=== PATIENT | male | born 1985 | race Caucasian/White ===

== ENCOUNTER 2019-03-27 12:58 | Emergency (ER) | payer BC ==
[~2019-03-27] VITALS: Ht 177.8 cm; Wt 104.3 kg
[2019-03-27 13:10] VITALS: BP 161/87
[2019-03-27] MEDS ORDERED: ADDERAL20 MG ORAL (13:10)
--- NOTE | 2019-03-27 13:12 | NUR ---
ED Nurse Note: pt walked in to ED due to dog bite on right hand last night. dog own by pt. up to date for vaccination. swelling noted. no active bleeding. limited ROM due to pain. AAO x4. respirations even and non-labored noted. will wait for the further order.
--- NOTE | 2019-03-27 13:42 | Emergency Room Report ---
History of Present Illness General Chief Complaint: Animal Bite Present Illness HPI 33-year-old male presents to the emergency department complaining of 8 out of 10 severity localized pain to the right hand since last night. Patient status post dog bite. Patient reports that his [place] bit him while he was trying to make the dog outside. Patient reports some bleeding which has resolved now he reports some surrounding erythema to the wound. Patient reports pain primarily in the PIP joint of the right fifth digit. Patient states he is up-to-date with his tetanus vaccinations. He denies taking blood thinning medications. He denies history of immune compromise. Denies numbness , tingling or loss of sensation or gross motor movements of the extremities. Denies bruising. or wounds elsewhere on the body. The dog is UTD with its vaccinations. Pt. is right hand dominant. Pain is exacerbated when attempting to straighten the right 5th digit. Allergies: Coded Allergies: No Known Allergies (Unverified , 03/27/19) Patient History Past Medical History: see triage record Past Surgical History: none Pertinent Family History: none Reviewed Nursing Documentation: PMH: Agreed; PSxH: Agreed Review of Systems All Other Systems: negative except mentioned in HPI Physical Exam Vital Signs Date Time Temp Pulse Resp B/P (MAP) Pulse Ox O2 Delivery O2 Flow Rate FiO2 03/27/19 13:05 98.2 93 16 161/87 (111) 98 Room Air Sp02 EP Interpretation: reviewed, normal General Appearance: no apparent distress, alert, GCS 15, non-toxic Head: normocephalic, atraumatic Eyes: bilateral eye normal inspection, bilateral eye PERRL ENT: hearing grossly normal, normal voice Neck: full range of motion Respiratory: lungs clear, normal breath sounds, speaking full sentences Cardiovascular #1: regular rate, rhythm, normal capillary refill Cardiovascular #2: 2+ radial (R), 2+ radial (L) Gastrointestinal: soft Musculoskeletal: back normal, gait/station normal, normal range of motion, tender - TTp to the Palm of the right hand just proximal to the 5th digit, there is TTP to the palmar aspect of the PIP joints of the right 3rd and 5th digits. Neurologic: alert, oriented x3, responsive, motor strength/tone normal, sensory intact, normal gait, speech normal, grossly normal Psychiatric: judgement/insight normal Skin: other - Two puncture wounds on the palmar aspect of the right hand: There is one 0.4cm puncture wound on the palm of the right hand just proximal to the 5th digit, there is one0.3cm in diameter puncture to the palmar aspect of the PIP joints of the right 3rd digit. Both wounds have some swelling and surrounding erythema noted. no obvious fb's, not bleeding. Lymphatic: no adenopathy Medical Decision Making PA Attestation Dr. Bain Is my supervising Physician whom patient management has been discussed with. Diagnostic Impression: Primary Impression: Dog bite of hand Qualified Codes: S61.451A - Open bite of right hand, initial encounter; W54.0XXA - Bitten by dog, initial encounter Additional Impression: Cellulitis Qualified Codes: L03.113 - Cellulitis of right upper limb ER Course 33-year-old male presents to the emergency department complaining of 8 out of 10 severity localized pain to the right hand since last night. Patient status post dog bite. Patient reports that his [place] bit him while he was trying to make the dog outside. Patient reports some bleeding which has resolved now he reports some surrounding erythema to the wound. Patient reports pain primarily in the PIP joint of the right fifth digit. Patient states he is up-to-date with his tetanus vaccinations. He denies taking blood thinning medications. He denies history of immune compromise. Denies numbness , tingling or loss of sensation or gross motor movements of the extremities. Denies bruising. or wounds elsewhere on the body. The dog is UTD with its vaccinations. Pt. is right hand dominant. Pain is exacerbated when attempting to straighten the right 5th digit. Ddx considered but are not limited to Cellulitis, rabies, fracture, Tendon injury, neurovascular compromise of extremity . Vital signs: are WNL, pt. is afebrile H&PE are most consistent with dog bite, mild infection. ORDERS: -X-ray right hand: WNL ED INTERVENTIONS: --Wound copiously irrigated under pressure --Right fifth digit finger splint applied by assistant technician. Pt. remains neurovascularly intact. -Right arm Sling applied by assistant technician. Pt. remains neurovascularly intact. DISCHARGE: At this time pt. is stable for d/c to home. Will provide printed patient care instructions, and any necessary prescriptions. Care plan and follow up instructions have been discussed with the patient prior to discharge. * Augmentin BID x 7 days. Other X-Ray Diagnostic Results Other X-Ray Diagnostic Results : X-Ray ordered: Right Hand # of Views/Limited Vs Complete: 3 View Indication: Pain EP Interpretation: Yes PA Xray: Interpretation reviewed, by supervising MD, and agrees with findings. Interpretation: no dislocation, no soft tissue swelling, no fractures Impression: No acute disease Electronically Signed by: Rain Ballard PA-C Last Vital Signs Date Time Temp Pulse Resp B/P (MAP) Pulse Ox O2 Delivery O2 Flow Rate FiO2 03/27/19 13:10 98.2 93 16 161/87 98 Room Air Disposition: HOME, SELF-CARE Condition: Stable Scripts Ibuprofen* (MOTRIN*) 600 Mg Tablet 600 MG ORAL THREE TIMES A DAY, #30 TAB 0 Refills Prov: Rain Ballard 03/27/19 Acetaminophen With Codeine (T#3) (TYLENOL #3 TAB*) Y Tab 1 TAB ORAL Q6HR PRN for For Pain, #6 TAB Prov: Rain Ballard 03/27/19 Amoxicillin/Potassium Clav 875-125* (AUGMENTIN 875-125 TABLET*) 1 Each Tablet 1 TAB ORAL TWICE A DAY for 7 Days, #14 TAB Prov: Rain Ballard 03/27/19 Referrals: NON PHYSICIAN (PCP) Patient Instructions: Animal Bite Additional Instructions: Take medications as directed. Follow up with a Primary Care Provider in 3-5 days, even if your symptoms have resolved. --Please review list of primary care clinics, if you do not already have a primary care provider Return sooner to ED if new symptoms occur, or current symptoms become worse. Do not drink alcohol, drive, or operate heavy machinery while taking Tylenol # 3 as this may cause drowsiness. - Please note that this Emergency Department Report was dictated using [employer] switchboard operator technology software, occasionally this can lead to erroneous entry secondary to interpretation by the dictation equipment. Rain Ballard Mar 27, 2019 13:42
[2019-03-27] MEDS ORDERED: ACETAMINOPHEN-1 EAC1 ORAL (13:43)
[2019-03-27] MEDS ORDERED: AUGMENTIN 875-1 EAC1 ORAL (13:43)
[2019-03-27] MEDS ORDERED: IBUPROFEN600 MG ORAL (13:43)
[2019-03-27 14:37] VITALS: BP 131/85
[2019-03-27 14:42] VITALS: BP 131/82
--- NOTE | 2019-03-27 18:31 | NUR ---
ER DISCHARGE NOTE: Discharged at 14:42 Patient is cleared to be discharged per ERMD, pt is aox4, on room air, with stable vital signs. pt was given dc and prescription instructions, pt was able to verbalize understanding, pt id band removed. pt is able to ambulate with steady gait. pt took all belongings. Patient has a dressing insitu tyo digit with splint and arm placed in sling - dressed and sling applied by celina Sherwood. Medications administered by TAI Giron pre discharge.
== END 2019-03-27 14:42 | disposition home or self-care (01) ==
LOC: EMR 13:20
DX: S61.451A Open bite of right hand, initial encounter (principal); L03.113 Cellulitis of right upper limb; W54.0XXA Bitten by dog, initial encounter; Y92.9 Unspecified place or not applicable
CPT/HCPCS: 29130; 99283